=== PATIENT | male | born 1990 | race American Indian/Alaskan Native ===

== ENCOUNTER 2018-01-17 16:39 | Emergency (ER) | payer SELFPAY ==
[2018-01-17] MEDS ORDERED: NACL 0.9% 1000 ML 1,000 ML IV ONE (23:35)
[2018-01-17] MEDS ORDERED: ZOFRAN IV ONE (23:35)
[2018-01-17] MEDS ORDERED: PEPCID IV ONE (23:36)
[2018-01-17] MEDS ORDERED: BENADRYL IV ONE (23:36)
--- NOTE | 2018-01-17 23:56 | Emergency Department Report ---
HPI - General Chief Complaint: Abdominal Pain Time Seen by Provider: 01/17/18 23:27 - HPI HPI: Room 3 The patient is a 27-year-old male presenting with a chief complaint of nausea and vomiting after eating molded meat. The patient states last night he ate a salad that he purchased at [employer] that was topped with turkey pepperoni (also purchased at [employer]). The patient states he ate the meal between 20:00-21:00 and at approximately 23:00 patient began having bilateral abdominal pain, headache, nausea and vomiting. The patient states he had frequent vomiting and began to feel weak. Patient states his abdominal pain is resolved. The patient states today his nausea and vomiting continued and began to notice an itchy rash on his right elbow and scrotum. The patient states further inspection of the pepperoni revealed it had mold on it. Patient's only complaint now is feeling weak, nauseous and pruritic. Patient currently denies any pain Location: [See above] Duration: Onset at 23:00 yesterday Quality: [See above] Severity: Moderate Modifying factors: [see above] Context: [see above] ED Past Medical Hx - Past Medical History Previous Medical History?: No - Surgical History Past Surgical History?: Yes Additional Surgical History: left knee surgery - Family History Family history: no significant - Social History Smoking Status: Never Smoker Substance Use Type: Alcohol - Medications Home Medications: Home Medications Medication Instructions Recorded Confirmed Last Taken Type Ciprofloxacin HCl [Ciprofloxacin 500 mg PO Q12H #14 tab 01/18/18 Unknown Rx TAB] Famotidine [Pepcid] 20 mg PO BID #20 tablet 01/18/18 Unknown Rx Promethazine [Phenergan TAB] 25 mg PO Q6HR PRN #20 tab 01/18/18 Unknown Rx Promethazine [Phenergan] 25 mg [place] Q6HR PRN #5 supp.rect 01/18/18 Unknown Rx diphenhydrAMINE [Benadryl CAP] 50 mg PO Q6HR #24 capsule 01/18/18 Unknown Rx predniSONE [Deltasone] 40 mg PO QDAY #6 tab 01/18/18 Unknown Rx ED Review of Systems ROS: Stated complaint: RASHES/NAUSEA/ABD PAIN Other details as noted in HPI Constitutional: weakness Eyes: denies: eye pain ENT: denies: throat pain Respiratory: no symptoms reported Cardiovascular: denies: chest pain Endocrine: no symptoms reported Gastrointestinal: abdominal pain, nausea, vomiting Genitourinary: denies: dysuria Musculoskeletal: denies: back pain Neurological: headache Physical Exam - Physical Exam Vital Signs: Vital Signs 01/17/18 01/17/18 01/17/18 16:51 20:41 21:00 Temperature 97.6 F 97.4 F L Pulse Rate 61 57 L Respiratory 16 18 Rate Blood Pressure 109/64 113/74 Blood Pressure 107/67 [Right] O2 Sat by Pulse 98 100 100 Oximetry 01/17/18 22:00 Temperature Pulse Rate Respiratory Rate Blood Pressure 106/66 Blood Pressure [Right] O2 Sat by Pulse 100 Oximetry Physical Exam: GENERAL: The patient is well-developed well-nourished male lying on stretcher not appear to be in acute distress. [] HEENT: Normocephalic. Atraumatic. Extraocular motions are intact. Patient has moist mucous membranes. NECK: Supple. Trachea midline CHEST/LUNGS: Clear to auscultation. There is no respiratory distress noted. HEART/CARDIOVASCULAR: Regular. There is no tachycardia. There is no gallop rub or murmur. ABDOMEN: Abdomen is soft, mild discomfort to palpation in the left upper quadrant. Patient has normal bowel sounds. There is no abdominal distention. SKIN: There is a single circular papular region of skin to the right elbow. Patient's pigmentation makes a evaluation for erythema difficult (no definite erythema seen). There is a singular papule to the left scrotal with an irregularly shaped surrounding region of psychological tests sales agent pigmentation NEURO: The patient is awake, alert, and oriented. The patient is cooperative. The patient has normal speech MUSCULOSKELETAL: There is no evidence of acute injury. ED Course Vital Signs 01/17/18 01/17/18 01/17/18 16:51 20:41 21:00 Temperature 97.6 F 97.4 F L Pulse Rate 61 57 L Respiratory 16 18 Rate Blood Pressure 109/64 113/74 Blood Pressure 107/67 [Right] O2 Sat by Pulse 98 100 100 Oximetry 01/17/18 22:00 Temperature Pulse Rate Respiratory Rate Blood Pressure 106/66 Blood Pressure [Right] O2 Sat by Pulse 100 Oximetry - Reevaluation(s) Reevaluation #1: 01/18/18 00:31 Patient states he feels improved. Patient states he has been able to eat and has not vomited ED Medical Decision Making - Lab Data Result diagrams: 01/17/18 23:53 01/17/18 23:53 Laboratory Tests 01/17/18 01/17/18 23:53 23:53 WBC 5.8 RBC 5.18 H Hgb 13.9 Hct 40.4 MCV 78 L MCH 27 L MCHC 35 H RDW 14.1 Plt Count 181 Lymph % (Auto) 31.3 [place] % (Auto) 5.4 Eos % (Auto) 2.5 Baso % (Auto) 1.7 Lymph # 1.8 [place] # 0.3 Eos # 0.1 Baso # 0.1 Seg Neutrophils % 59.1 Seg Neutrophils # 3.4 Sodium 138 Potassium 3.9 Chloride 97.0 L Carbon Dioxide 29 Anion Gap 16 BUN 9 Creatinine 1.0 Estimated GFR > 60 BUN/Creatinine Ratio 9 Glucose 83 Calcium 9.7 Total Bilirubin 0.60 AST 24 ALT 25 Alkaline Phosphatase 107 Total Protein 7.9 Albumin 4.7 Albumin/Globulin Ratio 1.5 Amylase 101 Lipase 40 - Differential Diagnosis foodborne illness, allergic reaction, Critical care attestation.: If time is entered above; I have spent that time in minutes in the direct care of this critically ill patient, excluding procedure time. ED Disposition Clinical Impression: Acute gastritis, Pruritic rash Disposition: DC-01 TO HOME OR SELFCARE Is pt being admited?: No Does the pt Need Aspirin: No Condition: Stable Instructions: Gastritis (ED) Additional Instructions: Return to the emergency department immediately should you develop worsening symptoms, fever, inability to tolerate food or liquid or any other concerns. Prescriptions: Ciprofloxacin HCl [Ciprofloxacin TAB] 500 mg PO Q12H #14 tab diphenhydrAMINE [Benadryl CAP] 50 mg PO Q6HR #24 capsule Famotidine [Pepcid] 20 mg PO BID #20 tablet predniSONE [Deltasone] 40 mg PO QDAY #6 tab Promethazine [Phenergan TAB] 25 mg PO Q6HR PRN #20 tab PRN Reason: Nausea Promethazine [Phenergan] 25 mg [place] Q6HR PRN #5 supp.rect PRN Reason: Vomiting Referrals: PRIMARY CARE, [Primary Care Provider] - 3-5 Days CLAYTON IBARRA MD [Staff Physician] - 3-5 Days (Dr. Ibarra is a senior user experience architect. Please follow-up with him for further evaluation) SELWYN RAMOS MD [Staff Physician] - 3-5 Days (Dr. Ramos is a agricultural engineering technician. Please follow up with him for further evaluation of your rash) Time of Disposition: 00:37
[2018-01-18 00:02] LABS: Basophils # (Auto) 0.1 K/mm3 (0.0-0.1); Basophils % (Auto) 1.7 % (0.0-1.8); Eosinophils # (Auto) 0.1 K/mm3 (0.0-0.4); Eosinophils % (Auto) 2.5 % (0.0-4.3); Hematocrit 40.4 % (35.5-45.6); Hemoglobin 13.9 gm/dl (11.8-15.2); Lymphocytes # (Auto) 1.8 K/mm3 (1.2-5.4); Lymphocytes % (Auto) 31.3 % (13.4-35.0); Mean Corpuscular HGB Conc 35 % (32-34); Mean Corpuscular Hemoglobin 27 pg (28-32); Mean Corpuscular Volume 78 fl (84-94); Monocytes # (Auto) 0.3 K/mm3 (0.0-0.8); Monocytes % (Auto) 5.4 % (0.0-7.3); Platelet Count 181 K/mm3 (140-440); Red Blood Count 5.18 M/mm3 (3.65-5.03); Red Cell Distribution Width 14.1 % (13.2-15.2)
[2018-01-18 00:22] LABS: Alanine Aminotransferase 25 units/L (7-56); Albumin 4.7 g/dL (3.9-5); BUN/Creatinine Ratio 9; Blood Urea Nitrogen 9 mg/dL (9-20); Calcium 9.7 mg/dL (8.4-10.2); Hemolysis Index 6; Lipase 40 units/L (13-60)
[2018-01-18 01:04] VITALS: BP 109/70
== END 2018-01-18 01:07 | disposition home or self-care (01) ==
LOC: ED 16:39
DX: K29.00 Acute gastritis without bleeding (principal); R53.1 Weakness; L29.9 Pruritus, unspecified
CPT/HCPCS: 36415; 80053; 82150; 83690; 85025; 96374; 96375; 99283; J2405; J2930; J7030; J1200